=== PATIENT | male | born 1975 | race African-American/Black ===

== ENCOUNTER 2016-09-17 10:32 | Emergency (ER) | payer OTHER ==
[~2016-09-17] VITALS: Ht 175.3 cm; Wt 88.0 kg
[2016-09-17 10:36] VITALS: Ht 175.3 cm; Wt 88.0 kg
--- NOTE | 2016-09-17 11:57 | ERD ---
ER Documentation Chief Complaint Date/Time DATE: 09/17/16 TIME: 11:54 Chief Complaint pt states neck pain since Nov, not getting better, unk cause HPI This 41-year-old male who presents the emergency department today complaining of neck pain for the past 3 months. Patient states he saw primary care doctor who ordered an x-ray but he was never told the results. She is giving him a headache. States he is starting to get some numbness and tingling in his hands. States he has a history of anxiety. Denies any fevers or chills. ROS All systems reviewed and are negative except as per history of present illness. Medications Home Meds Active Scripts Cyclobenzaprine Hcl* (Cyclobenzaprine Hcl*) 10 Mg Tablet, 10 MG PO QHS, #7 TAB Prov:LUDMILA HALL PA-C 09/17/16 Naproxen* (Naprosyn*) 500 Mg Tablet, 500 MG PO BID Y for PAIN AND/OR INFLAMMATION, #30 TAB Prov:LUDMILA HALL PA-C 09/17/16 Tramadol HCl (Tramadol HCl) 50 Mg Tablet, 50 MG PO Q4 Y for PAIN, #20 TAB Prov:LUDMILA HALL PA-C 09/17/16 Allergies Allergies: Coded Allergies: No Known Allergy (Unverified , 09/17/16) PMhx/Soc History of Surgery: No Anesthesia Reaction: No Hx Neurological Disorder: No Hx Respiratory Disorders: No Hx Cardiac Disorders: No Hx Psychiatric Problems: Yes (Anxiety) Hx Miscellaneous Medical Probl: No Hx Alcohol Use: Yes Hx Substance Use: Yes (marijuana) Hx Tobacco Use: Yes Smoking Status: Current every day smoker Physical Exam Vitals Vital Signs Date Time Temp Pulse Resp B/P Pulse Ox O2 Delivery O2 Flow Rate FiO2 09/17/16 10:36 97.3 87 16 133/97 99 Physical Exam Const: No acute distress Head: Atraumatic Eyes: Normal Conjunctiva ENT: Normal External Ears, Nose and Mouth. Neck: Decreased range of motion secondary to pain..~ No meningismus. Mild midline tenderness and bilateral paraspinal tenderness. Tenderness to palpation bilateral trapezius muscle. 2+. Distal neurovascularly intact. Resp: Clear to auscultation bilaterally Cardio: Regular rate and rhythm, no murmurs Abd: Soft, non tender, non distended. Normal bowel sounds Skin: No petechiae or rashes Neur: Awake and alert Psych: Normal Mood and Affect Results 24 hrs Current Medications Medications (Trade) Dose Ordered Sig/Mira Route PRN Reason Start Time Stop Time Status Last Admin Dose Admin Acetaminophen/ Hydrocodone Bitart (Hancock (5/325)) 1 tab ONCE ONCE PO 09/17/16 12:00 09/17/16 12:01 DC 09/17/16 11:41 Ketorolac Tromethamine (Toradol) 30 mg ONCE STAT IM 09/17/16 13:11 09/17/16 13:12 DC 09/17/16 13:17 Patient: JORGE ROMAN : 1975 Age: 41 Sex: M MR #: [id number] DOS: 09/17/16 0000 Ordering MD: LUDMILA HALL PA-C Location: [facility] Room/Bed: PROCEDURE: XR Cervical Spine. CLINICAL INDICATION: Neck Pain. TECHNIQUE: AP, open mouth odontoid and lateral views of the cervical spine were performed. The images were reviewed on a PACS workstation. COMPARISON: None. FINDINGS: The vertebral body alignment, height and osseous mineralization are normal. There is no facet arthropathy. The uncovertebral joints are unremarkable. The intervertebral disc spaces are well maintained. There are no abnormal calcifications. The prevertebral soft tissues are normal. No radiopaque foreign bodies are identified. The skull is intact. IMPRESSION: No acute fracture or dislocation. Negative exam. RPTAT: PP .Shara Ibarra MD, MD Date Time Electronically viewed and signed by .Shara Ibarra MD, MD on 09/17/2016 12:20 .F/ CC: LUDMILA HALL PA-C Procedures/MDM This 41-year-old male presents to the emergency department today complaining of neck pain for the past 3 months. Patient had had an x-ray however he was unsure of the results and therefore did obtain an x-ray today given the length and duration of symptoms and patient's complaints of numbness and tingling into his hands. Per the radiology report images of the cervical spine show no acute fracture dislocation. Joints are unremarkable. Intervertebral disc spaces are well- maintained. There is no abnormal calcification. Low suspicion for meningitis. Patient is afebrile and otherwise well- appearing. Low suspicion for acute fracture dislocation. Low suspicion for abscess. Symptoms at this time most consistent with strain versus sprain versus muscle spasm. He has acute on chronic pain. I have explained this to the patient. I have explained to him that he may need further evaluation from an field support specialist. Patient understood. Patient was given Hancock here in the emergency department and he was still continuing to complain of pain and therefore was given a Toradol injection. He will be given a short course of tramadol, Naprosyn and Flexeril for home. At this time the patient is stable for discharge and outpatient management. Patient should follow up with their PCP in the next 1-2 days. They may return to the emergency department sooner for any persistent or worsening of symptoms. Patient understood and agreed with the plan. Departure Diagnosis: Primary Impression: Neck pain Condition: Fair LUDMILA HALL PA-C Sep 17, 2016 11:57
[2016-09-17] MEDS ORDERED: HYDROCODONE/APAP (5/325) TAB PO ONE (12:00)
--- NOTE | 2016-09-17 12:20 | RADRPT ---
PROCEDURE: XR Cervical Spine. CLINICAL INDICATION: Neck Pain. TECHNIQUE: AP, open mouth odontoid and lateral views of the cervical spine were performed. The zully ges were reviewed on a PACS workstation. COMPARISON: None. FINDINGS: The vertebral body alignment, height and osseous mineralization are normal. There is no facet arthro margaux. The uncovertebral joints are unremarkable. The intervertebral disc spaces are well maintained . There are no abnormal calcifications. The prevertebral soft tissues are normal. No radiopaque fore ign bodies are identified. The skull is intact. IMPRESSION: No acute fracture or dislocation. Negative exam. RPTAT: PP .Shara Ibarra MD, MD Date Time Electronically viewed and signed by .Shara Ibarra MD, on 09/17/2016 12:20 .F/
[2016-09-17] MEDS ORDERED: KETOROLAC 30 MG INJ IM STA (13:11)
[2016-09-17] MEDS ORDERED: CYCL-319 PO (13:24)
[2016-09-17] MEDS ORDERED: TRAM50TA2 PO (13:24)
[2016-09-17] MEDS ORDERED: NAPR-260 PO (13:24)
[2016-09-17 13:37] VITALS: BP 129/88; PULSE 78; RESP 16; TEMP 98.1
== END 2016-09-17 13:38 | disposition home or self-care (01) ==
LOC: FTE 10:32
DX: M54.2 Cervicalgia (principal); F17.210 Nicotine dependence, cigarettes, uncomplicated
CPT/HCPCS: 72040; 96372; J1885; Z7502; Z7610

== ENCOUNTER 2017-01-31 11:33 | Emergency (ER) | END 2017-01-31 14:01 | disposition home or self-care (01) | DX: M54.5 Low back pain (principal); M25.562 Pain in left knee; J45.909 Unspecified asthma, uncomplicated; F17.210 Nicotine dependence, cigarettes, uncomplicated; M54.6 Pain in thoracic spine | CPT/HCPCS: 72072; 72100; 73562; 93970; Z7502; Z7610 ==